=== PATIENT | male | born 1980 | race Caucasian/White ===

== ENCOUNTER 2018-11-21 11:32 | Emergency (ER) | payer MEDICAID ==
[~2018-11-21] VITALS: Ht 193 cm; Wt 72.3 kg
[2018-11-21 11:33] VITALS: Ht 193 cm; Wt 72.3 kg
[2018-11-21] MEDS ORDERED: AMOXICILLIN500 M1 PO (11:36)
[2018-11-21] MEDS ORDERED: CLEOCIN HCL300 MG PO (12:26)
[2018-11-21 12:40] LABS: BASOPHILS 0.1 % (0-2); EOSINOPHILS 2.4 % (0-7); HEMATOCRIT 44.6 % (42.0-54.0); HEMOGLOBIN 15.2 g/dL (13.5-17.5); IMMATURE GRANULOCYTES 0.1 % (0-5); LYMPHOCYTES 18.9 % (15-50); MCH 31.9 pg (26.0-34.0); MCHC 34.1 g/dL (31.0-37.0); MCV 93.5 fL (80.0-100.0); MEAN PLATELET VOLUME 10.1 fL (7.4-10.4); MONOCYTES 8.6 % (2-11); NEUTROPHILS 69.9 % (40-80); PLATELET COUNT 242 10x3/uL (130-400); RBC 4.77 10x6/uL (4.20-6.10); RDW 14.2 % (11.5-14.5); WBC 7.6 10x3/uL (4.8-10.8)
[2018-11-21 12:51] LABS: ALBUMIN 3.3 g/dL (3.4-5.0); ALKALINE PHOSPHATASE 67 U/L (46-116); ALT (SGPT) 19 U/L (10-68); BILIRUBIN - TOTAL 0.54 mg/dL (0.2-1.3); CALC OSMOLALITY 276 mosm/kg (275-300); CALCIUM 8.5 mg/dL (8.5-10.1); CARBON DIOXIDE 28.2 mmol/L (21.0-32.0); CHLORIDE - SERUM 105 mmol/L (98-107); GLUCOSE 85 mg/dL (74-106); POTASSIUM - SERUM 3.9 mmol/L (3.5-5.1); PROTEIN - SERUM 6.8 g/dL (6.4-8.2); SODIUM 139 mmol/L (136-145); UREA NITROGEN 12 mg/dL (7-18); eGFR NON AFRICAN AMERICAN 88 mL/min (90-120)
[2018-11-21 13:01] VITALS: BP 142/80
== END 2018-11-21 13:02 | disposition home or self-care (01) ==
LOC: D.ER 11:32
PROVIDERS: Family Medicine
DX: K04.7 Periapical abscess without sinus (principal); F17.210 Nicotine dependence, cigarettes, uncomplicated

== ENCOUNTER 2019-03-12 04:09 | Emergency (ER) | payer OTHER ==
[~2019-03-12] VITALS: Ht 193 cm; Wt 68.2 kg
[~2019-03-12 04:09] MED LIST: AMOXICILLIN500 M1 PO; CLEOCIN HCL300 MG PO
[2019-03-12 04:15] VITALS: BP 140/98; Ht 193 cm; Wt 68.2 kg
== END 2019-03-12 04:43 | disposition home or self-care (01) ==
LOC: D.ER 04:09
DX: M25.572 Pain in left ankle and joints of left foot (principal)

== ENCOUNTER 2019-12-07 20:49 | Emergency (ER) | payer MEDICAID ==
[~2019-12-07] VITALS: Ht 193 cm; Wt 79.4 kg
[2019-12-07 21:11] VITALS: Ht 193 cm; Wt 79.4 kg
[2019-12-07] MEDS ORDERED: ALBUTEROL SULF8.5 GM INH (23:28)
[2019-12-07] MEDS ORDERED: ZPAK PO (23:28)
[2019-12-08] MEDS ORDERED: TYLENOL W/CODEI1 TAB PO (00:17)
[2019-12-08 01:15] VITALS: BP 122/70
== END 2019-12-08 01:12 | disposition home or self-care (01) ==
LOC: D.ER 20:49
DX: J40 Bronchitis, not specified as acute or chronic (principal); R09.1 Pleurisy; R05 Cough